=== PATIENT | female | born 1970 | race Caucasian/White ===

== ENCOUNTER 2023-01-19 09:00 | Outpatient (RCR) | payer OTHER ==
[~2023-01-19 09:00] MED LIST: ZOFRAN ODT4 MG PO
== END 2023-02-06 | disposition home or self-care (01) ==
LOC: WSPT
DX: M17.11 Unilateral primary osteoarthritis, right knee (principal); M22.42 Chondromalacia patellae, left knee

== ENCOUNTER → 2023-02-25 | Outpatient (CLI) | payer OTHER | LOC: COL.RAD 09:43 | DX: D47.2 Monoclonal gammopathy (principal); R22.1 Localized swelling, mass and lump, neck ==

== ENCOUNTER 2023-05-05 09:00 | Outpatient (RCR) | payer OTHER | END 2023-05-08 | disposition home or self-care (01) | LOC: WSPT | DX: M22.42 Chondromalacia patellae, left knee (principal); Z98.890 Other specified postprocedural states ==

== ENCOUNTER 2023-12-02 13:38 | Emergency (ER) | payer OTHER ==
[~2023-12-02] VITALS: Ht 165.1 cm; Wt 127.3 kg
[2023-12-02 13:41] VITALS: TEMP 98.2
[2023-12-02] MEDS ORDERED: ceFAZolin 2 G in Water For Injection,Sterile 20 ML IV ONE (14:00)
[2023-12-02] MEDS ORDERED: HYDROmorphone 0.5 MG/0.5 ML SYRINGE IV ONE (14:00)
[2023-12-02] MEDS ORDERED: Tdap Vaccine 0.5 ML SYRINGE IM ONE (14:00)
[2023-12-02] MEDS ORDERED: Ondansetron 4 MG/2 ML VIAL IV ONE (14:00)
[2023-12-02 14:43] LABS: BASO % 0.2 % (0.0-2.0); EOS # 0.1 K/mm3 (0.0-0.7); EOS % 0.8 % (0.0-4.0); GRAN % 81.2 % (42.2-75.2); HEMATOCRIT 44.9 % (37.0-47.0); HEMOGLOBIN 14.3 g/dl (12.5-16.0); LYMPH # 1.5 K/mm3 (1.2-3.4); LYMPH % 12.4 % (20.0-51.0); MEAN CELL VOLUME 87 fl (80.0-100.0); MEAN CORPUSCULAR HEMOGLOBIN 28 pg (27-31); MEAN CORPUSCULAR HGB CONC 32 g/dl (33.0-37.0); MEAN PLATELET VOLUME 9.3 fl (7.4-10.4); MONO # 0.6 K/mm3 (0.1-0.6); MONO % 5.1 % (1.7-9.3); PLATELET COUNT 390 K/mm3 (130-400); RED BLOOD COUNT 5.15 M/mm3 (4.10-5.30); REDCELL DISTRIBUTION WIDTH-CV 16.5 % (11.5-14.5)
[2023-12-02 14:48] LABS: PROTHROMBIN TIME 10.7 SECONDS (9.7-12.8)
[2023-12-02 15:11] LABS: ALBUMIN 3.6 g/dL (3.5-5.0); BILIRUBIN,TOTAL 0.3 mg/dL (0.2-1.2); CALCIUM 9.6 mg/dL (8.4-10.2); CREATININE, serum 0.88 mg/dL (0.57-1.11); POTASSIUM 4.5 mEq/L (3.5-4.5); TOTAL PROTEIN 7.3 g/dl (6.2-8.1)
[2023-12-02] MEDS ORDERED: CEPHALEXIN500 M1 PO (17:24)
[2023-12-02 18:31] VITALS: BP 139/86; PULSE 76
[2023-12-02] MEDS ORDERED: DECADRON PO (18:38)
[2023-12-02] MEDS ORDERED: EFFEXOR XR75 MG/CAP PO (18:38)
[2023-12-02] MEDS ORDERED: ULTRAM 50MG TAB50 MG PO (18:39)
[2023-12-02] MEDS ORDERED: NEXIUM 40MG40 MG PO (18:39)
[2023-12-02] MEDS ORDERED: FLEXERIL 1010 MG/TAB PO (18:39)
[2023-12-02] MEDS ORDERED: LYRICA300 MG PO (18:39)
[2023-12-02] MEDS ORDERED: LASIX 20MG TABL20 MG PO (18:40)
[2023-12-02] MEDS ORDERED: CELEBREX 200MG200 MG PO (18:40)
== END 2023-12-02 18:25 | disposition home or self-care (01) ==
LOC: COL.ER 13:38
PROVIDERS: Emergency Medicine
DX: S82.831A Other fracture of upper and lower end of right fibula, initial encounter for closed fracture (principal); Z23 Encounter for immunization; W20.8XXA Other cause of strike by thrown, projected or falling object, initial encounter
CPT/HCPCS: J0688; J1171; J1720; J2405; L4386